=== PATIENT | male | born 1970 | race Caucasian/White ===

== ENCOUNTER 2022-01-20 09:40 | Emergency (ER) | payer SELFPAY ==
[~2022-01-20] VITALS: Ht 182.9 cm; Wt 86.2 kg
[2022-01-20] MEDS ORDERED: NORCO, ANEXSIA 5/325MG TABLET (HYDROcodone/ACETAMINOPHEN) PO ONE (13:25)
[2022-01-20] MEDS ORDERED: HYDR-4571 PO (19:17)
[2022-01-20 20:02] VITALS: BP 147/73
== END 2022-01-20 20:01 | disposition home or self-care (01) ==
LOC: M ED 09:40
DX: S83.012A Lateral subluxation of left patella, initial encounter (principal); M23.91 Unspecified internal derangement of right knee; Y93.01 Activity, walking, marching and hiking